=== PATIENT | male | born 1970 | race Caucasian/White ===

== ENCOUNTER 2020-11-03 13:09 | Emergency (ER) | payer OTHER ==
[~2020-11-03 13:09] MED LIST: AUGMENTIN 875-1 EACH PO; B COMPLEX1 EACH PO; CEFUROXIME250 MG PO; CITALOPRAM HBR20 MG PO; COMPAZINE10 MG PO; ECOTRIN81 MG PO; GLUCOPHAGE500 MG PO; HYDROCODON-ACE1 EAC4 PO; LIPITOR TAB 2020 MG PO; LISINOPRIL5 MG PO; NEURONTIN 400400 MG PO; PLAVIX 75 MG TA75 MG PO; PROAIR HFA8.5 GM INH; REQUIP3 MG PO; TESSALON PERLE100 MG PO; TRESIBA100 UNIT/1 SQ; U 500 SQ
[2020-11-03 15:23] LABS: HEMOGLOBIN 15.7 gm/dl (14.0-17.5); RED BLOOD COUNT 5.08 M/UL (4.20-5.50); WHITE BLOOD COUNT 11.7 K/UL (4.5-11.0)
[2020-11-03 16:17] LABS: BUN/CREATININE RATIO 35 (0-10)
[2020-11-03 21:54] LABS: BUN/CREATININE RATIO 42 (0-10)
[2020-11-03] MEDS ORDERED: PHENERGAN 25 MG25 M1 PO (23:58)
[2020-11-26] MEDS ORDERED: FENOGLIDE40 MG PO (07:33)
[2020-11-26] MEDS ORDERED: METOCLOPRAMIDE PO (07:33)
[2020-11-26] MEDS ORDERED: HYDROXYZINE PAM25 MG PO (07:34)
[2020-11-26] MEDS ORDERED: ONDANSETRON ODT8 MG PO (07:34)
[2020-11-26] MEDS ORDERED: BUSPIRONE HCL5 MG PO (07:34)
== END 2020-11-03 23:35 | disposition home or self-care (01) ==
LOC: ER1 13:09
PROVIDERS: Emergency Medicine
DX: R06.02 Shortness of breath (principal); E11.9 Type 2 diabetes mellitus without complications; I10 Essential (primary) hypertension; Z86.73 Personal history of transient ischemic attack (TIA), and cerebral infarction without residual deficits; Z20.822 Contact with and (suspected) exposure to COVID-19
CPT/HCPCS: 70450; 71045; 80048; 80053; 82009; 82140; 82550; 82553; 82962; 83605; 83690; 83880; 84484; 85025; 93005; 96372; 96374; 96375; 99285; J1630; J2405; J2550; U0002

== ENCOUNTER 2020-11-05 13:46 | Inpatient (IN) | payer OTHER ==
[~2020-11-05] VITALS: Ht 182.9 cm; Wt 118.5 kg
[~2020-11-05 13:46] MED LIST changes: +PHENERGAN 25 MG25 M1 PO
[2020-11-05 14:17] LABS: HEMOGLOBIN 16.9 gm/dl (14.0-17.5); RED BLOOD COUNT 5.33 M/UL (4.20-5.50)
[2020-11-05 14:26] LABS: WHITE BLOOD COUNT 15.6 K/UL (4.5-11.0)
[2020-11-05 14:45] LABS: BUN/CREATININE RATIO 29 (0-10)
[2020-11-05 16:23] LABS: BUN/CREATININE RATIO 31 (0-10)
[2020-11-05 20:28] LABS: BUN/CREATININE RATIO 36 (0-10)
[2020-11-06 10:22] LABS: BUN/CREATININE RATIO 35 (0-10)
[2020-11-07 03:26] LABS: RED BLOOD COUNT 4.56 M/UL (4.20-5.50); WHITE BLOOD COUNT 10.1 K/UL (4.5-11.0)
[2020-11-07 03:37] LABS: BUN/CREATININE RATIO 23 (0-10)
[2020-11-08] MEDS ORDERED: AMOX TR-K CLV1 EAC4 PO (09:28)
[2020-11-08] MEDS ORDERED: LISINOPRIL5 MG PO (09:28)
[2020-11-26] MEDS ORDERED: FENOGLIDE40 MG PO (07:33)
[2020-11-26] MEDS ORDERED: METOCLOPRAMIDE PO (07:33)
[2020-11-26] MEDS ORDERED: ONDANSETRON ODT8 MG PO (07:34)
[2020-11-26] MEDS ORDERED: BUSPIRONE HCL5 MG PO (07:34)
[2020-11-26] MEDS ORDERED: HYDROXYZINE PAM25 MG PO (07:34)
== END 2020-11-08 13:40 | disposition home or self-care (01) | DRG 637 ==
LOC: ER1 13:46 → PROG CARE 11-06 00:41 → CDU 11-06 00:41 → PROG CARE 11-06 01:10
PROVIDERS: Emergency Medicine; Internal Medicine; ADMIT Internal Medicine
DX: E11.10 Type 2 diabetes mellitus with ketoacidosis without coma (principal); I63.81 Other cerebral infarction due to occlusion or stenosis of small artery; G93.41 Metabolic encephalopathy; E87.1 Hypo-osmolality and hyponatremia; N39.0 Urinary tract infection, site not specified; E11.43 Type 2 diabetes mellitus with diabetic autonomic (poly)neuropathy; Z20.822 Contact with and (suspected) exposure to COVID-19; I10 Essential (primary) hypertension; E86.0 Dehydration; G90.1 Familial dysautonomia [Riley-Day]; E66.9 Obesity, unspecified; J32.0 Chronic maxillary sinusitis; K31.84 Gastroparesis; E78.5 Hyperlipidemia, unspecified; Z90.49 Acquired absence of other specified parts of digestive tract; Z88.8 Allergy status to other drugs, medicaments and biological substances; Z88.1 Allergy status to other antibiotic agents; Z79.4 Long term (current) use of insulin; Z82.49 Family history of ischemic heart disease and other diseases of the circulatory system; Z68.35 Body mass index [BMI] 35.0-35.9, adult; I16.0 Hypertensive urgency
CPT/HCPCS: 0240U; 36415; 70450; 70551; 71045; 80048; 80053; 81001; 82009; 82962; 83605; 83690; 83735; 85025; 85027; 93005; 93880; 96372; 96374; 96375; 96376; 97161; 97166; 99285; G0378; J0360; J1630; J1650; J2405; J7030; Q9967

== ENCOUNTER → 2020-11-26 | Day surgery (SDC) | payer OTHER ==
[~2020-11-26] MED LIST changes: +AMOX TR-K CLV1 EAC4 PO; +BUSPIRONE HCL5 MG PO; +CELEXA40 MG PO; +FARXIGA10 MG PO; +FENOGLIDE40 MG PO; +GLUCOPHAGE 500500 MG PO; +HYDROXYZINE PAM25 MG PO; +LIPITOR80 MG PO; +LISINOPRIL20 MG PO; +METOCLOPRAMIDE PO; +NEURONTIN800 MG PO; +NOVOLOG FL100 UNIT/1 SC; +NOVOLOG FL100 UNIT/1 SQ; +NUVIGIL200 MG PO; +ONDANSETRON HCL8 MG PO; +ONDANSETRON ODT8 MG PO; +PLAVIX75 MG PO; +REGLAN10 MG PO; +ROPINIROLE HCL3 MG PO; +TRESIBA SC; +VITAMIN B-121000 MCG PO; +VITAMIN B-625 MG PO
== END | disposition home or self-care (01) ==
LOC: OR 06:18
DX: R11.0 Nausea (principal); Z18.39 Other retained organic fragments; E11.9 Type 2 diabetes mellitus without complications; I10 Essential (primary) hypertension; Z87.891 Personal history of nicotine dependence; Z88.8 Allergy status to other drugs, medicaments and biological substances; Z79.82 Long term (current) use of aspirin; E66.01 Morbid (severe) obesity due to excess calories; Z68.34 Body mass index [BMI] 34.0-34.9, adult; E78.5 Hyperlipidemia, unspecified
CPT/HCPCS: 82962; J2001; J2704; J7040

== ENCOUNTER → 2020-12-03 | Outpatient (CLI) | payer OTHER | LOC: NM 08:41 | DX: R11.0 Nausea (principal) | CPT/HCPCS: 78264; A9541 ==

== ENCOUNTER 2020-12-29 15:11 | Emergency (ER) | payer OTHER ==
[~2020-12-29 15:11] MED LIST changes: -CELEXA40 MG PO; -FARXIGA10 MG PO; -GLUCOPHAGE 500500 MG PO; -LIPITOR80 MG PO; -LISINOPRIL20 MG PO; -NEURONTIN800 MG PO; -NOVOLOG FL100 UNIT/1 SC; -NOVOLOG FL100 UNIT/1 SQ; -NUVIGIL200 MG PO; -ONDANSETRON HCL8 MG PO; -PLAVIX75 MG PO; -REGLAN10 MG PO; -ROPINIROLE HCL3 MG PO; -TRESIBA SC; -VITAMIN B-121000 MCG PO; -VITAMIN B-625 MG PO
[2020-12-29 16:27] LABS: HEMOGLOBIN 12.9 gm/dl (14.0-17.5); RED BLOOD COUNT 4.16 M/UL (4.20-5.50); WHITE BLOOD COUNT 8.1 K/UL (4.5-11.0)
[2020-12-29 16:44] LABS: BUN/CREATININE RATIO 20 (0-10)
== END 2020-12-29 19:48 | disposition home or self-care (01) ==
LOC: ER1 15:11
PROVIDERS: Physician Assistant Medical
DX: R10.12 Left upper quadrant pain (principal); R10.32 Left lower quadrant pain; E11.9 Type 2 diabetes mellitus without complications; I10 Essential (primary) hypertension; Z86.73 Personal history of transient ischemic attack (TIA), and cerebral infarction without residual deficits; Z79.899 Other long term (current) drug therapy; Z88.8 Allergy status to other drugs, medicaments and biological substances
CPT/HCPCS: 80053; 81001; 83605; 85025; 96374; 96375; 99284; Q9967

== ENCOUNTER → 2021-01-15 | Outpatient (CLI) | payer OTHER | LOC: US 12-23 08:30 | DX: R10.9 Unspecified abdominal pain (principal) | CPT/HCPCS: 76700 ==

== ENCOUNTER → 2021-02-12 | Outpatient (CLI) | payer OTHER ==
[~2021-02-12] MED LIST changes: +CELEXA40 MG PO; +FARXIGA10 MG PO; +GLUCOPHAGE 500500 MG PO; +LIPITOR80 MG PO; +LISINOPRIL20 MG PO; +NEURONTIN800 MG PO; +NOVOLOG FL100 UNIT/1 SC; +NOVOLOG FL100 UNIT/1 SQ; +NUVIGIL200 MG PO; +ONDANSETRON HCL8 MG PO; +PLAVIX75 MG PO; +REGLAN10 MG PO; +ROPINIROLE HCL3 MG PO; +TRESIBA SC; +VITAMIN B-121000 MCG PO; +VITAMIN B-625 MG PO
== END ==
LOC: MRI 15:14
DX: R41.3 Other amnesia (principal)
CPT/HCPCS: 70553; A9577

== ENCOUNTER 2021-02-13 18:37 | Observation (INO) | payer OTHER ==
[~2021-02-13] VITALS: Ht 182.9 cm; Wt 113.4 kg
[~2021-02-13 18:37] MED LIST changes: -CELEXA40 MG PO; -FARXIGA10 MG PO; -GLUCOPHAGE 500500 MG PO; -LIPITOR80 MG PO; -LISINOPRIL20 MG PO; -NEURONTIN800 MG PO; -NOVOLOG FL100 UNIT/1 SC; -NOVOLOG FL100 UNIT/1 SQ; -NUVIGIL200 MG PO; -ONDANSETRON HCL8 MG PO; -PLAVIX75 MG PO; -REGLAN10 MG PO; -ROPINIROLE HCL3 MG PO; -TRESIBA SC; -VITAMIN B-121000 MCG PO; -VITAMIN B-625 MG PO
[2021-02-13 19:34] LABS: RED BLOOD COUNT 4.49 M/UL (4.20-5.50); WHITE BLOOD COUNT 8.1 K/UL (4.5-11.0)
[2021-02-13 19:59] LABS: BUN/CREATININE RATIO 18 (0-10)
[2021-02-14] MEDS ORDERED: ROPINIROLE HCL3 MG PO (04:47)
[2021-02-14] MEDS ORDERED: NUVIGIL200 MG PO ×2 (04:47→10:03)
[2021-02-14] MEDS ORDERED: BUSPIRONE HCL5 MG PO (04:47)
[2021-02-14] MEDS ORDERED: HYDROCODON-ACE1 EAC4 PO (04:48)
[2021-02-14] MEDS ORDERED: LISINOPRIL20 MG PO (04:48)
[2021-02-14] MEDS ORDERED: FARXIGA10 MG PO (04:49)
[2021-02-14] MEDS ORDERED: NOVOLOG FL100 UNIT/1 SQ (04:49)
[2021-02-14 05:49] LABS: HEMOGLOBIN 12.8 gm/dl (14.0-17.5); RED BLOOD COUNT 4.18 M/UL (4.20-5.50); WHITE BLOOD COUNT 6.9 K/UL (4.5-11.0)
[2021-02-14 06:11] LABS: BUN/CREATININE RATIO 20 (0-10)
[2021-02-14] MEDS ORDERED: NOVOLOG FL100 UNIT/1 SC (09:43)
[2021-02-14] MEDS ORDERED: NEURONTIN800 MG PO (09:45)
[2021-02-14] MEDS ORDERED: ONDANSETRON HCL8 MG PO (09:46)
[2021-02-14] MEDS ORDERED: PHENERGAN 25 MG25 M1 PO (09:47)
[2021-02-14] MEDS ORDERED: HYDROXYZINE PAM25 MG PO (09:48)
[2021-02-14] MEDS ORDERED: CELEXA40 MG PO (09:50)
[2021-02-14] MEDS ORDERED: REGLAN10 MG PO (09:51)
[2021-02-14] MEDS ORDERED: GLUCOPHAGE 500500 MG PO (09:53)
[2021-02-14] MEDS ORDERED: PLAVIX75 MG PO (09:53)
[2021-02-14] MEDS ORDERED: VITAMIN B-625 MG PO (09:59)
[2021-02-14] MEDS ORDERED: VITAMIN B-121000 MCG PO (10:00)
[2021-02-14] MEDS ORDERED: COMPAZINE10 MG PO (10:05)
[2021-02-14] MEDS ORDERED: LIPITOR80 MG PO (10:06)
[2021-02-14] MEDS ORDERED: TRESIBA SC (10:11)
== END 2021-02-14 17:26 | disposition home or self-care (01) ==
LOC: ER1 18:37 → CDU 22:51 → PROG CARE 02-14 14:46
PROVIDERS: Emergency Medicine; ADMIT Internal Medicine
DX: I95.9 Hypotension, unspecified (principal); R11.0 Nausea; E87.2 Acidosis; G93.40 Encephalopathy, unspecified; E11.65 Type 2 diabetes mellitus with hyperglycemia; K59.00 Constipation, unspecified; I10 Essential (primary) hypertension; E78.5 Hyperlipidemia, unspecified; Z86.73 Personal history of transient ischemic attack (TIA), and cerebral infarction without residual deficits; Z88.8 Allergy status to other drugs, medicaments and biological substances; Z79.4 Long term (current) use of insulin; Z79.02 Long term (current) use of antithrombotics/antiplatelets; Z79.899 Other long term (current) drug therapy; Z20.822 Contact with and (suspected) exposure to COVID-19
CPT/HCPCS: 70450; 71045; 80053; 81001; 82550; 82553; 82962; 83605; 83735; 83874; 84443; 84484; 85025; 87040; 93005; 96374; 96375; 99285; G0378; J2405; J7030; U0002

== ENCOUNTER 2021-02-16 23:11 | Inpatient (IN) | payer OTHER ==
[~2021-02-16] VITALS: Ht 182.9 cm; Wt 114.3 kg
[~2021-02-16 23:11] MED LIST changes: +CELEXA40 MG PO; +FARXIGA10 MG PO; +GLUCOPHAGE 500500 MG PO; +LIPITOR80 MG PO; +LISINOPRIL20 MG PO; +NEURONTIN800 MG PO; +NOVOLOG FL100 UNIT/1 SC; +NOVOLOG FL100 UNIT/1 SQ; +NUVIGIL200 MG PO; +ONDANSETRON HCL8 MG PO; +PLAVIX75 MG PO; +REGLAN10 MG PO; +ROPINIROLE HCL3 MG PO; +TRESIBA SC; +VITAMIN B-121000 MCG PO; +VITAMIN B-625 MG PO
[2021-02-16 23:41] LABS: HEMOGLOBIN 14.6 gm/dl (14.0-17.5); RED BLOOD COUNT 4.66 M/UL (4.20-5.50); WHITE BLOOD COUNT 7.5 K/UL (4.5-11.0)
[2021-02-17 00:03] LABS: BUN/CREATININE RATIO 26 (0-10)
[2021-02-17] MEDS ORDERED: AMOX TR-K CLV1 EAC4 PO (11:08)
[2021-02-17] MEDS ORDERED: LISINOPRIL20 MG PO (11:08)
[2021-02-18 04:13] LABS: BUN/CREATININE RATIO 24 (0-10)
--- NOTE | 2021-02-18 06:49 | NUR ---
DURING REPORT AT 0640 PTS CAME OUT STATING HE IS HAVING A SEIZURE, WALKED IN, PTS HANDS WERE LOCKED AND LIP WAS SHAKING. JOHANNA SHIELDS WENT AND PULLED LORAZEPAM AND WE GAVE IT IVP. PT STOPPED SHAKING AND STARTED TO REST.
--- NOTE | 2021-02-19 05:52 | NUR ---
Patient had 3 small seizures throughout the night lasting approximately 30 seconds each time. Patient turns head to his right, makes jerky involuntary movements with his jaw, and grunts. Last seizure occured at 02/18/2021 @ 22:10.
== END 2021-02-19 14:21 | disposition short-term general hospital (02) | DRG 101 ==
LOC: ER1 23:11 → CDU 02-17 00:54 → M/S 02-17 20:26
PROVIDERS: Family Medicine; ADMIT Internal Medicine
PROC: 4A00X4Z Measurement of Central Nervous Electrical Activity, External Approach (ICD-10-PCS; principal; 2021-02-17)
DX: G40.911 Epilepsy, unspecified, intractable, with status epilepticus (principal); R44.3 Hallucinations, unspecified; E11.9 Type 2 diabetes mellitus without complications; Z20.822 Contact with and (suspected) exposure to COVID-19; I10 Essential (primary) hypertension; F32.9 Major depressive disorder, single episode, unspecified; I95.9 Hypotension, unspecified; E78.5 Hyperlipidemia, unspecified; R41.3 Other amnesia; Z86.73 Personal history of transient ischemic attack (TIA), and cerebral infarction without residual deficits; Z79.01 Long term (current) use of anticoagulants; Z79.82 Long term (current) use of aspirin; Z79.4 Long term (current) use of insulin; Z90.49 Acquired absence of other specified parts of digestive tract; Z88.8 Allergy status to other drugs, medicaments and biological substances; Z88.6 Allergy status to analgesic agent
CPT/HCPCS: 36415; 70450; 71045; 76536; 80048; 80053; 80185; 80307; 81001; 82550; 82553; 82962; 83036; 83605; 83874; 84146; 84439; 84443; 84484; 85025; 93005; 95816; 96374; 96375; 99285; G0378; G0480; J1650; J1953; J2060; J7030; Q2009; U0002

== ENCOUNTER 2021-03-24 15:11 | Emergency (ER) | payer OTHER ==
[2021-03-24 15:48] LABS: RED BLOOD COUNT 4.9 M/UL (4.20-5.50); WHITE BLOOD COUNT 7.1 K/UL (4.5-11.0)
== END 2021-03-24 19:00 | disposition left against medical advice (07) ==
LOC: ER1 15:11
PROVIDERS: Emergency Medicine
DX: R26.9 Unspecified abnormalities of gait and mobility (principal); Z20.822 Contact with and (suspected) exposure to COVID-19; E78.5 Hyperlipidemia, unspecified; G40.909 Epilepsy, unspecified, not intractable, without status epilepticus; N17.9 Acute kidney failure, unspecified; E11.9 Type 2 diabetes mellitus without complications; I10 Essential (primary) hypertension; Z86.73 Personal history of transient ischemic attack (TIA), and cerebral infarction without residual deficits; Z88.8 Allergy status to other drugs, medicaments and biological substances
CPT/HCPCS: 70450; 70496; 70498; 71045; 80053; 82550; 82553; 82962; 83690; 83735; 83874; 84100; 84439; 84443; 84484; 85025; 85610; 85730; 93005; 99285; Q9967; U0002

== ENCOUNTER 2021-07-02 19:53 | Emergency (ER) | payer OTHER ==
[~2021-07-02 19:53] MED LIST changes: +FENOFIBRATE160 MG PO; +KEPPRA500 MG PO; +LACTULOSE10 GM/15 M PO; +LISINOPRIL10 MG PO; +NAPROSYN500 MG PO; +TRESIBA FL100 UNIT/1 INJ; -TRESIBA SC; +VIMPAT100 MG PO; -VITAMIN B-121000 MCG PO; +VITAMIN B-12500 MCG PO; +VITAMIN B-6100 MG PO; -VITAMIN B-625 MG PO
[2021-07-02 20:47] LABS: HEMOGLOBIN 13.8 gm/dl (14.0-17.5); RED BLOOD COUNT 4.58 M/UL (4.20-5.50); WHITE BLOOD COUNT 7.4 K/UL (4.5-11.0)
[2021-07-02 21:13] LABS: BUN/CREATININE RATIO 24 (0-10)
== END 2021-07-02 23:12 | disposition home or self-care (01) ==
LOC: ER1 19:53
PROVIDERS: Nurse Practitioner
DX: U07.1 COVID-19 (principal); R10.30 Lower abdominal pain, unspecified; R10.817 Generalized abdominal tenderness; E11.9 Type 2 diabetes mellitus without complications; I10 Essential (primary) hypertension; Z86.73 Personal history of transient ischemic attack (TIA), and cerebral infarction without residual deficits; Z88.8 Allergy status to other drugs, medicaments and biological substances
CPT/HCPCS: 0240U; 80053; 80185; 81001; 82150; 82550; 82553; 83690; 83874; 84484; 85025; 93005; 99284; J2405; Q9967

== ENCOUNTER 2021-07-19 18:11 | Emergency (ER) | payer MEDICARE ==
[2021-07-19 19:44] LABS: HEMOGLOBIN 13.4 gm/dl (14.0-17.5); RED BLOOD COUNT 4.47 M/UL (4.20-5.50); WHITE BLOOD COUNT 5.6 K/UL (4.5-11.0)
[2021-07-19 20:33] LABS: BUN/CREATININE RATIO 23 (0-10)
== END 2021-07-19 22:47 | disposition home or self-care (01) ==
LOC: ER1 18:11
PROVIDERS: Emergency Medicine
DX: U07.1 COVID-19 (principal); Z86.73 Personal history of transient ischemic attack (TIA), and cerebral infarction without residual deficits; E11.9 Type 2 diabetes mellitus without complications; Z79.4 Long term (current) use of insulin; Z88.8 Allergy status to other drugs, medicaments and biological substances
CPT/HCPCS: 80053; 81001; 83690; 85025; 96374; 96375; 99284; J2270; J2405; Q9967

== ENCOUNTER 2021-07-28 23:43 | Emergency (ER) | payer MEDICARE ==
[2021-07-29 01:17] LABS: HEMOGLOBIN 13.8 gm/dl (14.0-17.5); RED BLOOD COUNT 4.55 M/UL (4.20-5.50); WHITE BLOOD COUNT 7.8 K/UL (4.5-11.0)
[2021-07-29 01:42] LABS: BUN/CREATININE RATIO 26 (0-10)
[2021-07-29] MEDS ORDERED: ZOFRAN ODT 4 MG4 MG PO (03:40)
[2021-07-29] MEDS ORDERED: IBUPROFEN600 MG PO (03:40)
== END 2021-07-29 04:30 | disposition home or self-care (01) ==
LOC: ER1 23:43
PROVIDERS: Family Medicine
DX: R10.811 Right upper quadrant abdominal tenderness (principal); R10.812 Left upper quadrant abdominal tenderness; R10.817 Generalized abdominal tenderness; R11.2 Nausea with vomiting, unspecified; R89.2 Abnormal level of other drugs, medicaments and biological substances in specimens from other organs, systems and tissues; E11.9 Type 2 diabetes mellitus without complications; Z20.822 Contact with and (suspected) exposure to COVID-19; Z86.73 Personal history of transient ischemic attack (TIA), and cerebral infarction without residual deficits; Z79.4 Long term (current) use of insulin; Z88.8 Allergy status to other drugs, medicaments and biological substances
CPT/HCPCS: 71045; 80053; 80185; 81001; 83690; 83735; 85025; 99284; Q9967; U0002

== ENCOUNTER 2021-08-03 06:22 | Emergency (ER) | payer MEDICARE ==
[~2021-08-03 06:22] MED LIST changes: +IBUPROFEN600 MG PO; +ZOFRAN ODT 4 MG4 MG PO
[2021-08-03 07:42] LABS: HEMOGLOBIN 12.4 gm/dl (14.0-17.5); RED BLOOD COUNT 4.24 M/UL (4.20-5.50); WHITE BLOOD COUNT 6.7 K/UL (4.5-11.0)
[2021-08-03 08:04] LABS: BUN/CREATININE RATIO 21 (0-10)
[2021-08-03] MEDS ORDERED: ZOFRAN 4 MG TAB4 MG PO (08:32)
[2021-08-03] MEDS ORDERED: PHENERGAN 25 MG25 M1 PO (08:32)
== END 2021-08-03 09:05 | disposition home or self-care (01) ==
LOC: ER1 06:22
PROVIDERS: Physician Assistant
DX: R10.9 Unspecified abdominal pain (principal); R10.816 Epigastric abdominal tenderness; E11.9 Type 2 diabetes mellitus without complications; G43.909 Migraine, unspecified, not intractable, without status migrainosus; I10 Essential (primary) hypertension; Z90.49 Acquired absence of other specified parts of digestive tract; Z88.8 Allergy status to other drugs, medicaments and biological substances
CPT/HCPCS: 80053; 82550; 82553; 83690; 84484; 85025; 93005; 96374; 96375; 99284; C9113; J2550

== ENCOUNTER → 2021-08-18 | Day surgery (SDC) | payer MEDICARE ==
[~2021-08-18] MED LIST changes: +DILANTIN 100 M100 MG PO; +HYDROCODON-ACE1 EAC2 PO; +OMEGA 3; +PROTONIX40 MG PO; +ROPINIROLE HCL1 MG PO; +ZOFRAN 4 MG TAB4 MG PO
== END | disposition home or self-care (01) ==
LOC: OR 05:51
PROVIDERS: Internal Medicine Gastroenterology
PROC: 0DJD8ZZ Inspection of Lower Intestinal Tract, Via Natural or Artificial Opening Endoscopic (ICD-10-PCS; principal; 2021-08-18 07:30)
DX: Z12.11 Encounter for screening for malignant neoplasm of colon (principal); K64.1 Second degree hemorrhoids
CPT/HCPCS: 82962; J2704; J7040

== ENCOUNTER 2021-09-13 03:05 | Emergency (ER) | payer MEDICARE | END 2021-09-13 03:10 | disposition left against medical advice (07) | LOC: ER1 03:05 | DX: Z53.21 Procedure and treatment not carried out due to patient leaving prior to being seen by health care provider (principal) ==

== ENCOUNTER → 2022-02-22 | Outpatient (CLI) | payer MEDICARE | LOC: CT 12:19 | DX: K43.9 Ventral hernia without obstruction or gangrene (principal) | CPT/HCPCS: 36415; 82565; 84520; Q9967 ==